=== PATIENT | female | born 1945 | race Two or more races ===

== ENCOUNTER 2018-05-03 14:13 | Outpatient (CLI) | payer OTHER | END 2018-05-03 14:20 | disposition home or self-care (01) | LOC: MAMO-SONO 14:13 | DX: Z12.31 Encounter for screening mammogram for malignant neoplasm of breast (principal); Z87.898 Personal history of other specified conditions; N60.21 Fibroadenosis of right breast ==

== ENCOUNTER 2020-08-24 10:15 | Outpatient (CLI) | payer OTHER | END 2020-08-24 10:25 | disposition home or self-care (01) | LOC: MAMO-SONO 10:15 | PROVIDERS: ATTEND General Practice | DX: N60.21 Fibroadenosis of right breast (principal); N60.22 Fibroadenosis of left breast; N64.59 Other signs and symptoms in breast ==